=== PATIENT | male | born 1975 | race African-American/Black ===

== ENCOUNTER 2016-10-02 08:26 | Inpatient (IN) | payer OTHER ==
[2016-10-02 10:44] VITALS: BMI 28.6
--- NOTE | 2016-10-02 12:22 | HP ---
CIWA Score - CIWA Score Nausea/Vomitin Muscle Tremors: 3 Anxiety: 3 Agitation: 3 Paroxysmal Sweats: 2 Orientation: 0-Oriented Tacttile Disturbances: 2-Mild Itch/Numbness/Burn Auditory Disturbances: 2-Mild Harshness/Frighten Visual Disturbances: 2-Mild Sensitivity Headache: 2-Mild CIWA-Ar Total Score: 22 Admission ROS BHS - HPI Chief Complaint: I NEED HELP TO STOP DRINKING ALCOHOL AND COCAINE Allergies/Adverse Reactions: Allergies Allergy/AdvReac Type Severity Reaction Status Date / Time pork derived (porcine) Allergy Severe Hives Verified 10/02/16 11:12 No Known Drug Allergies Allergy Unknown Verified 10/02/16 11:12 liver Allergy Severe Hives Uncoded 10/02/16 11:12 NKDA Allergy Uncoded 10/02/16 11:12 History of Present Illness: THIS 41 YEARS OLD WITH ALCOHOL AND COCAINE DEPENDENCE,WITHDRAWAL SYMPTOM,LAST DETOX IN 2014 IN [facility] NICOTINE DEPENDENCE MULTIPLE ADMISSIONS IN DETOX LONGEST PERIOD OF SOBRIETY 3 YEARS Exam Limitations: No Limitations - Ebola screening Have you traveled outside of the country in the last 21 days: No Have you been sick,other than usual withdrawal symptoms: No - Review of Systems Constitutional: Chills, Diaphoresis, Loss of Appetite, Malaise, Night Sweats, Changes in sleep, Weakness EENT: reports: Nose Congestion Respiratory: reports: No Symptoms reported Cardiac: reports: No Symptoms Reported GI: reports: Diarrhea, Nausea, Vomiting, Abdominal cramping : reports: No Symptoms Reported Musculoskeletal: reports: Back Pain, Muscle Pain Integumentary: reports: Dryness Neuro: reports: Headache, Tremors Hematology: reports: No Symptoms Reported Psychiatric: reports: No Sypmtoms Reported Other Systems: Reviewed and Negative Patient History - Patient Medical History Hx Anemia: No Hx Asthma: No Hx Chronic Obstructive Pulmonary Disease (COPD): No Hx Cancer: No Hx Cardiac Disorders: No Hx Congestive Heart Failure: No Hx Hypertension: No Hx Hypercholesterolemia: No HX Cerebrovascular Accident: No Hx Seizures: No Hx Dementia: No Hx Diabetes: No Hx Gastrointestinal Disorders: No Hx Liver Disease: No Hx Genitourinary Disorders: No Hx Sexually Transmitted Disorders: No Hx Renal Disease (ESRD): No Hx Thyroid Disease: No Hx Human Immunodeficiency Virus (HIV): No (NEGATIVE HX 06/08 NEGATIVE) Hx Hepatitis C: No Hx Depression: No Hx Suicide Attempt: No Hx Bipolar Disorder: No Hx Schizophrenia: No Other Medical History: NO SUICIDAL,NO HOMICIDAL - Patient Surgical History Past Surgical History: No Hx Neurologic Surgery: No Hx Cataract Extraction: No Hx Cardiac Surgery: No Hx Lung Surgery: No Hx Breast Surgery: No Hx Breast Biopsy: No Hx Abdominal Surgery: No Hx Appendectomy: No Hx Cholecystectomy: No Hx Genitourinary Surgery: No Hx Section: No Hx Orthopedic Surgery: No Anesthesia Reaction: No - PPD History Previous Implant?: Yes Documented Results: Negative w/o proof Implanted On Prior [facility] Admission?: Yes Date: 08/04/13 PPD to be Administered?: Yes - Smoking Cessation Smoking history: Current every day smoker Have you smoked in the past 12 months: Yes Aproximately how many cigarettes per day: 5 Hx Chewing Tobacco Use: No Initiated information on smoking cessation: Yes 'Breaking Loose' booklet given: 10/02/16 - Substance & Tx. History Hx Alcohol Use: Yes Hx Substance Use: Yes Substance Use Type: Alcohol, Cocaine Hx Substance Use Treatment: Yes (2014 [facility]) - Substances Abused Cocaine Route: Inhalation Frequency: 1-2 times per week Amount used: $350 Age of first use: 30 Date of Last Use: 10/01/16 Alcohol-cognac/beer Route: Oral Frequency: Daily Amount used: 2 pts./2-6 pks. Age of first use: 16 Date of Last Use: 10/02/16 Family Disease History - Family Disease History Family Disease History: Diabetes: Mother, Other: Grandparent (GRANDMOTHER HTN) Admission Physical Exam BHS - Vital Signs Vital Signs: Vital Signs - 24 hr 10/02/16 10:43 Temperature 97.6 F Pulse Rate 68 Respiratory 20 Rate Blood Pressure 137/75 - Physical General Appearance: Yes: Moderate Distress, Tremorous, Irritable, Sweating, Anxious HEENTM: Yes: Nasal Congestion Respiratory: Yes: Lungs Clear Neck: Yes: Within Normal Limits Breast: Yes: Breast Exam Deferred Cardiology: Yes: Regular Rhythm, Regular Rate, S1, S2 Abdominal: Yes: Within Normal Limits, Normal Bowel Sounds, Non Tender, Flat, Soft Genitourinary: Yes: Within Normal Limits, Frequency, Hesitency, Itiching Back: Yes: Muscle Spasm Musculoskeletal: Yes: Back pain, Muscle Pain Extremities: Yes: Tremors Neurological: Yes: Within Normal Limits, cork sorter II-XII NML intact, Fully Oriented, Alert Integumentary: Yes: Dry Lymphatic: Yes: Within Normal Limits - Diagnostic (1) Nicotine dependence Current Visit: Yes Status: Acute Cleared for Admission [facility] - Detox or Rehab [facility] Level of Care: Medically Managed Detox Regimen/Protocol: Librium [facility] Breath Alcohol Content Breath Alcohol Content: 0 Urine Drug Screen - Results Drug Screen Negative: No Urine Drug Screen Results: RUTHIE-Cocaine, MDMA-Ecstasy
[2016-10-02] MEDS ORDERED: MAG HYDROX/AL HYDROX/SIMETH 30 ML UNIT-DOSE CUP PO PRN (12:29)
[2016-10-02] MEDS ORDERED: guaiFENesin/D-METHORPHAN HB 10 ML UNIT-DOSE CUPS PO PRN (12:29)
[2016-10-02] MEDS ORDERED: diphenhydrAMINE HCL 50 MG CAPSULE PO PRN (12:29)
[2016-10-02] MEDS ORDERED: MAGNESIUM HYDROX 2400MG/30ML ORAL SUSPENSION 30 ML CUP PO PRN (12:29)
[2016-10-02] MEDS ORDERED: NICOTINE POLACRILEX 2 MG GUM BUC PRN (12:29)
[2016-10-02] MEDS ORDERED: MAGNESIUM CITRATE 300 ML BOTTLE PO PRN (12:29)
[2016-10-02] MEDS ORDERED: P-EPHED 60MG/TRIPROLIDI 2.5MG TABLET PO PRN (12:29)
[2016-10-02] MEDS ORDERED: IBUPROFEN 400 MG TABLET (FP) PO PRN (12:29)
[2016-10-02] MEDS ORDERED: chlordiazePOXIDE HCL 25 MG CAPSULE PO PRN (12:29)
[2016-10-02] MEDS ORDERED: MENTHOL/PHENOL 1 EACH UD MM PRN (12:29)
[2016-10-02] MEDS ORDERED: ACETAMINOPHEN 325 MG TABLET (FP) PO PRN (12:29)
[2016-10-02] MEDS ORDERED: hydrOXYzine PAMOATE 50 MG CAPSULE (FP) PO PRN (12:29)
[2016-10-02] MEDS ORDERED: LOPERAMIDE HCL 2 MG CAPSULE PO PRN (12:29)
[2016-10-02] MEDS ORDERED: chlordiazePOXIDE HCL 25 MG CAPSULE PO ONE (12:35)
[2016-10-02 15:29] LABS: URINE APPEARANCE CLEAR; URINE BILIRUBIN NEGATIVE (NEGATIVE); URINE BLOOD NEGATIVE (NEGATIVE); URINE COLOR LTYELLOW; URINE GLUCOSE (UA) NEGATIVE (NEGATIVE); URINE KETONE NEGATIVE (NEGATIVE); URINE LEUK ESTERASE NEGATIVE (NEGATIVE); URINE NITRITE NEGATIVE (NEGATIVE); URINE PROTEIN NEGATIVE (NEGATIVE); URINE UROBILINOGEN NEGATIVE E.U./dl (0.2-1.0)
[2016-10-02] MEDS: chlordiazePOXIDE HCL 25 MG CAPSULE PO SCH ×2 (18:04→22:48)
[2016-10-02] MEDS ORDERED: THIAMINE HCL 100 MG TABLET (FP) PO SCH (22:00)
[2016-10-02 22:10] VITALS: PULSE 76
[2016-10-03] MEDS: chlordiazePOXIDE HCL 25 MG CAPSULE PO SCH ×2 (05:58→10:19)
[2016-10-03 06:27] VITALS: BP 135/75; TEMP 96.5
[2016-10-03] MEDS ORDERED: PRENATAL VITAMINS W/ FOLIC ACID TABLET (FP) PO SCH (10:00)
[2016-10-03 10:02] LABS: MCH 31.4 pg (25.7-33.7); MCHC 32.9 g/dl (32.0-35.9); MEAN CELL VOLUME 95.4 fl (80-96); MEAN PLT VOLUME 8.8 fl (7.5-11.1); PLATELET COUNT 259 K/MM3 (134-434); RDW 14.6 % (11.9-15.9); WHITE BLOOD COUNT 5.9 K/mm3 (4.0-10.0)
[2016-10-03 10:13] LABS: ALBUMIN 4.2 g/dl (3.4-5.0); CALCIUM 9.2 mg/dL (8.5-10.1); GLUCOSE,RANDOM 104 mg/dL (74-106)
[2016-10-03 10:22] LABS: ALK PHOS 67 U/L (45-117); ANION GAP 9 (8-16); BILIRUBIN,TOTAL 0.8 mg/dL (0.2-1.0); CO2 31 mmol/L (21-32); CREATININE 1.1 mg/dL (0.7-1.3); SGOT/AST 34 U/L (15-37); SGPT/ALT 37 U/L (12-78); TOT PROT 7.6 g/dl (6.4-8.2)
--- NOTE | 2016-10-03 11:05 | DS ---
[facility] Detox Discharge Summary Admission Date: 10/02/16 Discharge Date: 10/03/16 - History Present History: Alcohol Dependence, Cocaine Dependence Pertinent Past History: Denies - Physical Exam Results Vital Signs: Vital Signs Temperature 96.5 F L 10/03/16 06:26 Pulse Rate 76 10/03/16 06:26 Respiratory Rate 18 10/03/16 06:26 Blood Pressure 135/75 10/03/16 06:26 O2 Sat by Pulse Oximetry (%) Pertinent Admission Physical Exam Findings: Withdrawal sx. Laboratory Last Values WBC 5.9 K/mm3 (4.0-10.0) 10/03/16 06:30 RBC 4.50 M/mm3 (4.00-5.60) 10/03/16 06:30 Hgb 14.1 GM/dL (11.7-16.9) 10/03/16 06:30 Hct 42.9 % (35.4-49) 10/03/16 06:30 MCV 95.4 fl (80-96) 10/03/16 06:30 MCHC 32.9 g/dl (32.0-35.9) 10/03/16 06:30 RDW 14.6 % (11.9-15.9) 10/03/16 06:30 Plt Count 259 K/MM3 (134-434) 10/03/16 06:30 MPV 8.8 fl (7.5-11.1) 10/03/16 06:30 Sodium 142 mmol/L (136-145) 10/03/16 06:30 Potassium 3.5 mmol/L (3.5-5.1) D 10/03/16 06:30 Chloride 102 mmol/L (98-107) 10/03/16 06:30 Carbon Dioxide 31 mmol/L (21-32) 10/03/16 06:30 Anion Gap 9 (8-16) 10/03/16 06:30 BUN 19 mg/dL (7-18) H D 10/03/16 06:30 Creatinine 1.1 mg/dL (0.7-1.3) 10/03/16 06:30 Creat Clearance w eGFR > 60 (>60) 10/03/16 06:30 Random Glucose 104 mg/dL (74-106) D 10/03/16 06:30 Calcium 9.2 mg/dL (8.5-10.1) 10/03/16 06:30 Total Bilirubin 0.8 mg/dL (0.2-1.0) D 10/03/16 06:30 AST 34 U/L (15-37) D 10/03/16 06:30 ALT 37 U/L (12-78) D 10/03/16 06:30 Alkaline Phosphatase 67 U/L (45-117) 10/03/16 06:30 Total Protein 7.6 g/dl (6.4-8.2) 10/03/16 06:30 Albumin 4.2 g/dl (3.4-5.0) 10/03/16 06:30 Urine Color Ltyellow 10/02/16 13:25 Urine Appearance Clear 10/02/16 13:25 Urine pH 6.0 (5.0-8.0) 10/02/16 13:25 Ur Specific Jackson 1.014 (1.001-1.035) 10/02/16 13:25 Urine Protein Negative (NEGATIVE) 10/02/16 13:25 Urine Glucose (UA) Negative (NEGATIVE) 10/02/16 13:25 Urine Ketones Negative (NEGATIVE) 10/02/16 13:25 Urine Blood Negative (NEGATIVE) 10/02/16 13:25 Urine Nitrite Negative (NEGATIVE) 10/02/16 13:25 Urine Bilirubin Negative (NEGATIVE) 10/02/16 13:25 Urine Urobilinogen Negative E.U./dl (0.2-1.0) 10/02/16 13:25 Ur Leukocyte Esterase Negative (NEGATIVE) 10/02/16 13:25 labs noted - Medication Discharge Medications: Ambulatory Orders NK [No Known Home Medication] 10/02/16 - Diagnosis (1) Alcohol dependence with uncomplicated withdrawal Status: Acute (2) Cocaine dependence, uncomplicated Status: Acute - AMA Did Patient Leave Against Medical Advice: Yes
--- NOTE | 2016-10-03 11:13 | EKG ---
Test Reason : Blood Pressure : / mmHG Vent. Rate : 064 BPM Atrial Rate : 064 BPM P-R Int : 144 ms QRS Dur : 080 ms QT Int : 412 ms P-R-T Axes : 060 038 017 degrees QTc Int : 425 ms NORMAL SINUS RHYTHM EARLY REPOLARIZATION NO PREVIOUS ECGS AVAILABLE Confirmed by JIMENEZ VALE MD ([id number]) on 10/03/2016 11:13:11 AM Referred By: David Bradley Confirmed By:JIMENEZ VALE MD
[2016-10-03] MEDS ORDERED: chlordiazePOXIDE HCL 25 MG CAPSULE PO SCH (17:00)
[2016-10-04] MEDS ORDERED: chlordiazePOXIDE 5 MG CAPSULE PO SCH (17:00)
[2016-10-05] MEDS ORDERED: chlordiazePOXIDE HCL 10 MG CAPSULE PO SCH (17:00)
== END 2016-10-03 09:23 | disposition left against medical advice (07) | DRG 770 ==
LOC: YASAS 08:26 → Y3N 11:38
PROVIDERS: ADMIT Internal Medicine; ATTEND Internal Medicine
PROC: HZ2ZZZZ Detoxification Services for Substance Abuse Treatment (ICD-10-PCS; principal; 2016-10-03)
DX: F10.230 Alcohol dependence with withdrawal, uncomplicated (principal); F14.20 Cocaine dependence, uncomplicated; F17.210 Nicotine dependence, cigarettes, uncomplicated
CPT/HCPCS: 36415; 80053; 81003; 85027; 86593; 93005; 93010

== ENCOUNTER 2019-11-01 09:35 | Inpatient (IN) | payer OTHER ==
--- NOTE | 2019-11-01 10:07 | BHS.RME ---
Substance Use & Tx History - Substance Use History Alcohol Substance amount: 2-3 pints Vodka, 6-12 beers 12 ounce cans Frequency of use: Daily Substance route: Oral Date of Last Use: 11/01/19 Cocaine (Crack) Substance amount: 2-3 grams Frequency of use: Daily Substance route: Smoking Date of Last Use: 11/01/19 Cannabis Substance amount: one joint Frequency of use: Daily Substance route: Smoking Date of Last Use: 11/01/19 Physical/Psych/Mental Status - Behavior General Behavior: Decreased activity Eye Contact: Normal - Cooperativeness Cooperativeness: Cooperative - Thinking Thought Processes: Tight Thought content: Future oriented - Physical Health Problems Is patient presently having any pain?: Yes (bilateral foot pain for one week, ingrown nail) Does patient presently have any injuries (include location): No Does patient currently have a fever: No Is patient : No CIWA Nausea/Vomitin-No Nausea/No Vomiting Muscle Tremors: None Anxiety: 3 Agitation: 1-Slight > Activity Paroxysmal Sweats: No Perspiration Orientation: 0-Oriented Tacttile Disturbances: 0-None Auditory Disturbances: 0-None Visual Disturbances: 0-None Headache: 0-None Present CIWA-Ar Total Score: 4
[2019-11-01 11:28] VITALS: BMI 27.1
--- NOTE | 2019-11-01 12:03 | HP ---
CIWA Score Nausea/Vomitin-No Nausea/No Vomiting Muscle Tremors: None Anxiety: 3 Agitation: 1-Slight > Activity Paroxysmal Sweats: No Perspiration Orientation: 0-Oriented Tacttile Disturbances: 0-None Auditory Disturbances: 0-None Visual Disturbances: 0-None Headache: 0-None Present CIWA-Ar Total Score: 4 - Admission Criteria [facility] Guidelines: Admission for Medically Managed Detox: Requires at least one of the followin. CIWA greater than 12 2. Seizures within the past 24 hours 3. Delirium tremens within the past 24 hours 4. Hallucinations within the past 24 hours 5. Acute intervention needed for co occurring medical disorder 6. Acute intervention needed for co occurring psychiatric disorder 7. Severe withdrawal that cannot be handled at a lower level of care (continued vomiting, continued diarrhea, abnormal vital signs) requiring intravenous medication and/or fluids 8. Admitting History and Physical - Admission Chief Complaint: Mr. Bonner is a 44 yo gentleman who presents to [facility] requesting admission for alcohol, cocaine and marijuana use. History of Present Illness: Mr. Bonner is a 44 yo gentleman who presents to [facility] requesting admission for alcohol, cocaine and marijuana use. He was last here on October 02, 2016 and left in one day, AmA. Additionally, he was here in 2012 and left after one day, AMA. PMH: none PSh: none Psych: was on Abilify for depression, last dose in June 2019 SOC: homeless Legal: none pending Substance use hx Alcohol: 2-3 pints Vodka dialy, 6x 12 pack of 16 ounce beers daily. Last drink today, first drink age 24y. No seizures, no blackouts. 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 Crack: 2-3 grams per day, smokes, first use at the age of 30 y. Last use early today THC: one joint per day, first use at the age of 16y, last smoked today Pt meets admission criteria for REhab. - Smoking History Smoking history: Current every day smoker Have you smoked in the past 12 months: Yes Aproximately how many cigarettes per day: 10 - Alcohol/Substance Use Hx Alcohol Use: Yes Admission ROS S - HPI Allergies/Adverse Reactions: Allergies Allergy/AdvReac Type Severity Reaction Status Date / Time pork derived (porcine) Allergy Severe Hives Verified 10/02/16 11:12 No Known Drug Allergies Allergy Unknown Verified 10/02/16 11:12 liver Allergy Severe Hives Uncoded 10/02/16 11:12 NKDA Allergy Uncoded 10/02/16 11:12 Exam Limitations: No Limitations - Ebola screening Have you traveled outside of the country in the last 21 days: No Have you had contact with anyone from an Ebola affected area: No Have you been sick,other than usual withdrawal symptoms: No - Review of Systems Constitutional: Unintentional Wgt. Loss EENT: reports: Throat Pain, Other (feels eyes are red) Respiratory: reports: No Symptoms reported Cardiac: reports: No Symptoms Reported GI: reports: No Symptoms Reported : reports: No Symptoms Reported Musculoskeletal: reports: No Symptoms Reported Integumentary: reports: Rash (? psoriasis, uses cream) Neuro: reports: Headache (in the am for months) Endocrine: reports: No Symptoms Reported Hematology: reports: No Symptoms Reported Patient History - Patient Medical History Hx Anemia: No Hx Asthma: No Hx Chronic Obstructive Pulmonary Disease (COPD): No Hx Cancer: No Hx Cardiac Disorders: No Hx Congestive Heart Failure: No Hx Hypertension: No Hx Hypercholesterolemia: No HX Cerebrovascular Accident: No Hx Seizures: No Hx Dementia: No Hx Diabetes: No Hx Gastrointestinal Disorders: No Hx Liver Disease: No Hx Genitourinary Disorders: No Hx Sexually Transmitted Disorders: No Hx Renal Disease (ESRD): No Hx Thyroid Disease: No Hx Human Immunodeficiency Virus (HIV): No (NEGATIVE HX 06/08 NEGATIVE) Hx Hepatitis C: No Hx Depression: Yes Hx Suicide Attempt: No Hx Bipolar Disorder: No Hx Schizophrenia: No - Patient Surgical History Past Surgical History: No Hx Neurologic Surgery: No Hx Cataract Extraction: No Hx Cardiac Surgery: No Hx Lung Surgery: No Hx Breast Surgery: No Hx Breast Biopsy: No Hx Abdominal Surgery: No Hx Appendectomy: No Hx Cholecystectomy: No Hx Genitourinary Surgery: No Hx Section: No Hx Orthopedic Surgery: No Anesthesia Reaction: No - PPD History Previous Implant?: Yes Documented Results: Negative w/o proof Implanted On Prior [facility] Admission?: Yes Date: 10/04/16 - Smoking Cessation Smoking history: Current every day smoker Have you smoked in the past 12 months: Yes Aproximately how many cigarettes per day: 10 Hx Chewing Tobacco Use: No Initiated information on smoking cessation: Yes 'Breaking Loose' booklet given: 11/01/19 - Substances abused Alcohol Substance route: Oral Frequency: Daily Amount used: 2 pints vodka Age of first use: 23 Date of last use: 11/01/19 Cocaine Substance route: Smoking Frequency: Daily Amount used: 2 grams Age of first use: 30 Date of last use: 11/01/19 Marijuana/Hashish Substance route: Smoking Frequency: Daily Amount used: 1 joint Age of first use: 16 Date of last use: 11/01/19 Admission Physical Exam [facility] - Vital Signs Vital Signs: Vital Signs - 24 hr 11/01/19 11:25 Temperature 98.0 F Pulse Rate 85 Respiratory 18 Rate Blood Pressure 118/98 - Physical General Appearance: Yes: Within Normal Limits HEENTM: Yes: Other (conjunctival redness) Respiratory: Yes: Lungs Clear, Normal Breath Sounds Neck: Yes: Within Normal Limits Breast: Yes: Breast Exam Deferred Cardiology: Yes: Regular Rate, S1, S2 Abdominal: Yes: Non Tender, Flat, Soft, Decreased BS Back: Yes: Normal Inspection Musculoskeletal: Yes: Within Normal Limits Extremities: Yes: Within Normal Limits Integumentary: Yes: Within Normal Limits - Diagnostic (1) Depression Current Visit: Yes Status: Chronic (2) Alcohol dependence Current Visit: Yes Status: Acute (3) Cocaine dependence Current Visit: Yes Status: Acute (4) Nicotine dependence Current Visit: Yes Status: Acute Cleared for Admission [facility] - Detox or Rehab [facility] Level of Care: Medically Supervised Breathalyzer - Breathalyzer Breathalyzer: 0 Urine Drug Screen - Test Device Lot number: [id number] Expiration date: 07/23/21 - Control Is test valid?: Yes - Results Drug screen NEGATIVE: No Urine drug screen results: THC-Marijuana, RUTHIE-Cocaine Inpatient Rehab Admission - Rehab Decision to Admit Inpatient rehab admission?: Yes - Initial Determination Are CD services needed?: Yes Free of communicable disease: Yes Not in need of hospitalization: Yes - Rehab Admission Criteria Previous failed treatment: Yes Poor recovery environment: Yes Comorbidities: Yes Lacks judgement: Yes Patient is meeting Inpatient Rehab admission criteria:: Yes
[2019-11-01] MEDS ORDERED: ACETAMINOPHEN 325 MG TABLET (FP) PO PRN (12:10)
[2019-11-01] MEDS ORDERED: LOPERAMIDE HCL 2 MG CAPSULE PO PRN (12:10)
[2019-11-01] MEDS ORDERED: MAG HYDROX/AL HYDROX/SIMETH 30 ML UNIT-DOSE CUP PO PRN (12:10)
[2019-11-01] MEDS ORDERED: NICOTINE POLACRILEX 2 MG GUM BUC PRN (12:10)
[2019-11-01] MEDS ORDERED: guaiFENesin 200 MG/10 ML 10 ML UNIT-DOSE CUPS PO PRN (12:10)
[2019-11-01] MEDS ORDERED: IBUPROFEN 400 MG TABLET (FP) PO PRN (12:10)
[2019-11-01] MEDS ORDERED: MAGNESIUM HYDROX 2400MG/30ML ORAL SUSPENSION 30 ML CUP PO PRN (12:10)
[2019-11-01] MEDS ORDERED: P-EPHED 60MG/TRIPROLIDI 2.5MG TABLET PO PRN (12:10)
[2019-11-01] MEDS ORDERED: MAGNESIUM CITRATE 300 ML BOTTLE PO PRN (12:10)
[2019-11-01] MEDS ORDERED: TETRAHYDROZOLINE HCL EYE DROPS OD PRN (12:13)
[2019-11-01] MEDS: hydrOXYzine PAMOATE 25 MG CAPSULE (FP) PO SCH ×3 (13:22→21:44)
[2019-11-01] MEDS: PRENATAL VITAMINS W/ FOLIC ACID TABLET (FP) PO SCH (13:22)
[2019-11-01] MEDS: NICOTINE 14 MG/24 HOURS TOPICAL PATCH TD SCH (13:22)
[2019-11-01 15:16] LABS: HEMATOCRIT 39.5 % (35.4-49); HEMOGLOBIN 13.2 GM/dL (11.7-16.9); MCH 31.2 pg (25.7-33.7); MCHC 33.5 g/dl (32.0-35.9); MEAN PLT VOLUME 7.9 fl (7.5-11.1); PLATELET COUNT 411 K/MM3 (134-434); RBC 4.24 M/mm3 (4.00-5.60); RDW 15.2 % (11.9-15.9); WHITE BLOOD COUNT 11.3 K/mm3 (4.0-10.0)
[2019-11-01 15:26] LABS: ALBUMIN 3.8 g/dl (3.4-5.0); BILIRUBIN,TOTAL 0.5 mg/dL (0.2-1); BLOOD UREA NITROGEN 20.8 mg/dL (7-18); CALCIUM 8.5 mg/dL (8.5-10.1); CREATININE 1.2 mg/dL (0.55-1.3); POTASSIUM 3.7 mmol/L (3.5-5.1); TOT PROT 7.2 g/dl (6.4-8.2)
[2019-11-01] MEDS ORDERED: THIAMINE HCL 100 MG TABLET (FP) PO SCH (22:00)
[2019-11-01] MEDS ORDERED: MELATONIN 5 MG TABLETS PO SCH (22:00)
[2019-11-02] MEDS: hydrOXYzine PAMOATE 25 MG CAPSULE (FP) PO SCH (06:11)
[2019-11-02 07:18] VITALS: BP 137/92; PULSE 90; TEMP 97.6
[2019-11-02] MEDS ORDERED: hydrOXYzine PAMOATE 25 MG CAPSULE (FP) PO PRN (09:08)
--- NOTE | 2019-11-02 09:32 | CONSULT ---
[facility] Psychiatric Consult - Data Date of interview: 11/02/19 Admission source: Self-referred Identifying data: Mr Bonner is a 44years old Black male, father of 2 children, unemployed, homeless admitted on 11/01/19 for inpatient rehabilitation treatment for alcohol, cocaine and cannabis Substance Abuse History: Patient has history of alcohol, cocaine and marijuana use. Refer to addiction counselor's summary for further information Medical History: Unremarkable. Smokes 10 cigarettes daily Psychiatric History: Patient left against medical advice before he could be seen
[2019-11-02] MEDS: PRENATAL VITAMINS W/ FOLIC ACID TABLET (FP) PO SCH (10:06)
[2019-11-02] MEDS: NICOTINE 14 MG/24 HOURS TOPICAL PATCH TD SCH (10:07)
[2019-11-02 10:19] LABS: URINE APPEARANCE CLEAR; URINE BILIRUBIN NEGATIVE (NEGATIVE); URINE COLOR YELLOW; URINE GLUCOSE (UA) NEGATIVE (NEGATIVE); URINE KETONE NEGATIVE (NEGATIVE); URINE LEUK ESTERASE NEGATIVE (NEGATIVE); URINE NITRITE NEGATIVE (NEGATIVE); URINE PROTEIN NEGATIVE (NEGATIVE); URINE UROBILINOGEN 0.2 mg/dL (0.2-1.0)
--- NOTE | 2019-11-02 10:31 | DS ---
[facility] Rehab Discharge Summary - [facility] Rehab Discharge Summary Admission Date: 11/01/19 Discharge Date: 11/02/19 - History Present History: Alcohol dependence, Cocaine dependence Pertinent Past History: 44 yo gentleman who was last here on October 02, 2016 and left in one day, AmA. Additionally, he was here in 2012 and left after one day, AMA. Today, he has decided to leave AMA again after one day. PMH: none PSh: none Psych: was on Abilify for depression, last dose in June 2019 SOC: homeless Legal: none pending Substance use hx Alcohol: 2-3 pints Vodka dialy, 6x 12 pack of 16 ounce beers daily.first drink age 24y. No seizures, no blackouts. 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 Crack: 2-3 grams per day, smokes, first use at the age of 30 y. THC: one joint per day, first use at the age of 16y, - Discharge Physical Exam Vital Signs: Vital Signs Temperature 97.6 F 11/02/19 07:18 Pulse Rate 90 11/02/19 07:18 Respiratory Rate 18 11/02/19 07:18 Blood Pressure 137/92 11/02/19 07:18 O2 Sat by Pulse Oximetry (%) Pertinent Admission Physical Exam Findings: UNABLE TO EXAMINE THE PATIENT BECAUSE HE LEFT BEFORE THIS PROVIDER COULD GET TO THE UNIT TO EXAMINE HIM. - Treatment Hospital Course: Patient was admitted last night and left AMA today. Unable to determine medical condition because the patient left prior to a physical exam. Based on the admission exam and history, he seems to be medically stable for discharge. There were no referrals because he did not wait for them. Patient stated he would go somewhere else. - Medication Discharge Medications: Ambulatory Orders NK [No Known Home Medication] 10/02/16 - Medication-Assisted Treatment (MAT) Medication-Assisted Treatment (MAT): No - Discharge Instructions Diet, activity, other medical instructions: Diet: unknown Activity: unknown Other medical instructions: patient did not wait for referrals. - Diagnosis (1) Alcohol dependence Current Visit: Yes Status: Chronic (2) Cocaine dependence Current Visit: Yes Status: Chronic - Follow-up Referral Minutes to complete discharge: 10 (This reflects the amount of time it took to write up a discharge summary. The patient was not seen by this provider because he left before I got to the unit.) - AMA Did Patient Leave Against Medical Advice: Yes
== END 2019-11-02 10:25 | disposition left against medical advice (07) | DRG 770 ==
LOC: YASAS 09:35 → Y6N 12:10 → Y3W 12:14
PROVIDERS: ADMIT Allergy & Immunology; ATTEND Allergy & Immunology
PROC: HZ42ZZZ Group Counseling for Substance Abuse Treatment, Cognitive-Behavioral (ICD-10-PCS; principal; 2019-11-01)
DX: F10.20 Alcohol dependence, uncomplicated (principal); F14.20 Cocaine dependence, uncomplicated; F12.20 Cannabis dependence, uncomplicated; F17.210 Nicotine dependence, cigarettes, uncomplicated; F32.9 Major depressive disorder, single episode, unspecified; Z91.018 Allergy to other foods; Z59.0 Homelessness
CPT/HCPCS: 36415; 80053; 81003; 85027; 86593